=== PATIENT | male | born 1945 | race Caucasian/White ===

== ENCOUNTER 2022-02-19 14:53 | Emergency (ER) | payer MEDICARE ==
[~2022-02-19] VITALS: Ht 182.9 cm; Wt 93.0 kg
--- OUTSIDE RECORDS SUMMARY | 2022-02-19 14:54 | XMS ---
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 EJyoti VISIT COUNT (12 MO.) 1 REBECCA Plummer TOTAL 1 NOTE: Visits indicate total known visits. ED/UCC VISIT TRACKING (12 MO.) 02/19/2022 14:53 REBECCA Correa OR TYPE: Emergency COMPLAINT: - DIZZINESS INPATIENT VISIT TRACKING (12 MO.) No inpatient visits to display in this time frame [email or web address]
[2022-02-19] MEDS ORDERED: ATORVASTATIN CA80 MG PO (15:40)
[2022-02-19] MEDS ORDERED: ELIQUIS2.5 MG PO (15:40)
[2022-02-19] MEDS ORDERED: PANTOPRAZOLE SO40 MG PO (15:40)
[2022-02-19] MEDS ORDERED: EFFER-K 20 MEQ20 MEQ PO (15:41)
--- NOTE | 2022-02-21 19:01 | EKG ---
[facility] [address] [facility] [place] [address] Signed Atrial fibrillation Left axis deviation Left bundle branch block Abnormal ECG No previous ECGs available Confirmed by KAIT MENSAH MD ([id number] on 02/21/2022 7:01:31 PM Electronically Signed By: KAIT MENSAH MD 02/21/221900 PATIENT NAME: DUYEN BURCIAGA Electrocardiogram DATE OF : 41 PHYSICIAN: KAIT MENSAH MD REPORT #: [id number] REPORT IS CONFIDENTIAL AND NOT TO BE RELEASED WITHOUT AUTHORIZATION
== END 2022-02-19 23:37 | disposition home or self-care (01) ==
LOC: ED 14:53
DX: E86.0 Dehydration (principal); S00.83XA Contusion of other part of head, initial encounter; J10.1 Influenza due to other identified influenza virus with other respiratory manifestations; I48.91 Unspecified atrial fibrillation; Z20.822 Contact with and (suspected) exposure to COVID-19; Z79.01 Long term (current) use of anticoagulants; Z79.899 Other long term (current) drug therapy; W22.8XXA Striking against or struck by other objects, initial encounter
CPT/HCPCS: 36415; 70450; 71045; 72125; 80053; 83735; 84484; 85025; 87502; 93005; 93010; 96360; 96361; 99285-25; C9803; J7030; J7121; U0003

== ENCOUNTER 2022-08-16 11:51 | Emergency (ER) | payer MEDICARE ==
[~2022-08-16] VITALS: Ht 182.9 cm; Wt 95.9 kg
[~2022-08-16 11:51] MED LIST: ATORVASTATIN CA80 MG PO; EFFER-K 20 MEQ20 MEQ PO; ELIQUIS2.5 MG PO; PANTOPRAZOLE SO40 MG PO
[2022-08-16 15:45] VITALS: BP 108/68
== END 2022-08-16 15:01 | disposition home or self-care (01) ==
LOC: ED 11:51
DX: S61.211A Laceration without foreign body of left index finger without damage to nail, initial encounter (principal); S61.213A Laceration without foreign body of left middle finger without damage to nail, initial encounter; W26.0XXA Contact with knife, initial encounter; Z79.899 Other long term (current) drug therapy; Z79.01 Long term (current) use of anticoagulants
CPT/HCPCS: 99282